=== PATIENT | female | born 1955 | race Two or more races ===

== ENCOUNTER 2020-11-05 03:20 | Emergency (ER) | payer MEDICAID ==
[~2020-11-05] VITALS: Ht 152.4 cm; Wt 68.0 kg
[2020-11-05] MEDS ORDERED: KETOROLAC 30MG/ML VIAL IM ONE (05:00)
[2020-11-05 05:31] LABS: CLARITY URINE CLEAR (CLEAR); COLOR URINE YELLOW (YELLOW); KETONES URINE NEGATIVE (NEGATIVE); LEUKOCYTE ESTERASE URINE TRACE (NEGATIVE); NITRITE URINE NEGATIVE (NEGATIVE); OCCULT BLOOD URINE NEGATIVE (NEGATIVE); PROTEIN URINE NEGATIVE (NEGATIVE); SPECIFIC GRAVITY URINE 1.005 (1.005-1.030); UROBILINOGEN URINE 0.2 E.U./dL (0.2-1.0)
[2020-11-05] MEDS ORDERED: NITR-87 MT (06:39)
[2020-11-05 07:41] VITALS: BP 121/78
== END 2020-11-05 08:01 | disposition home or self-care (01) ==
LOC: ER 03:20
DX: N39.0 Urinary tract infection, site not specified (principal); M54.5 Low back pain; E11.9 Type 2 diabetes mellitus without complications; I10 Essential (primary) hypertension
CPT/HCPCS: 81003; 96372; 99283; J1885